=== PATIENT | male | born 1990 | race Caucasian/White ===

== ENCOUNTER 2019-12-01 17:31 | Inpatient (IN) | payer MEDICAID, OTHER ==
[~2019-12-01] VITALS: Ht 175.3 cm; Wt 72.6 kg
[2019-12-01 18:45] LABS: Basophils # (auto) 0 10 ^3/uL (0-0.2); Basophils % (auto) 0.7 % (0.0-2.0); Eosinophils # (auto) 0.1 10 ^3/uL (0-0.8); Eosinophils % (auto) 1.4 % (0.0-7.0); Hematocrit 45.7 % (41.0-53.0); Hemoglobin 15.1 g/dL (13.5-17.5); Lymphocytes # (auto) 1.8 10 ^3/uL (0.4-5.4); Lymphocytes % (auto) 32.5 % (10.0-50.0); Mean Corpuscular Hemoglobin 29.6 pg (28.0-32.0); Mean Corpuscular Hgb Conc. 33.1 g/dL (32.0-36.0); Mean Corpuscular Volume 89.3 fL (80.0-100.0); Monocytes # (auto) 0.5 10 ^3/uL (0-1.3); Monocytes % (auto) 8.8 % (0.0-12.0); Neutrophils # (auto) 3.1 10 ^3/uL (1.6-8.6); Neutrophils % (auto) 56.6 % (37.0-80.0); Nucleated Red Blood Cells % 0.3 %; Platelet Count (auto) 239 10^3/uL (140-450); Red Blood Cells 5.12 10^6/uL (4.5-5.90); Red Cell Distribution Width 12.4 % (11.8-14.3); White Blood Cell 5.5 10^3/uL (4.4-10.8)
[2019-12-01 19:03] LABS: Alanine Aminotransferase 42 U/L (16-61); Albumin 3.7 g/dL (3.4-5.0); Anion Gap 4 (5-15); Aspartate Aminotransferase 33 U/L (15-37); BUN/Creatinine Ratio 7.3; Blood Urea Nitrogen 7 mg/dL (7-18); Calcium 8.9 mg/dL (8.5-10.1); Carbon Dioxide 31 mmol/L (21-32); Chloride 105 mmol/L (98-107); GFR African American 121 mL/min; GFR Non-African American 100 mL/min; Glucose 89 mg/dL (74-106); Potassium 4.5 mmol/L (3.5-5.1); Sodium 140 mmol/L (136-145)
[2019-12-01 19:07] LABS: Alkaline Phosphatase 72 U/L (45-117); Bilirubin, Total 1.5 mg/dL (0.2-1.0); Total Protein 7.1 g/dL (6.4-8.2)
[2019-12-01] MEDS ORDERED: CLOPIDOGREL BISULFATE 75 MG TAB PO ONE (20:00)
[2019-12-01] MEDS ORDERED: MORPHINE SULFATE 4 MG/ML SYR/VIAL IV ONE (20:00)
[2019-12-01] MEDS ORDERED: ONDANSETRON HCL 4 MG/2 ML VIAL IV ONE (20:00)
[2019-12-01] MEDS ORDERED: NITROGLYCERIN 0.4 MG SL TAB SL ONE (20:00)
[2019-12-01] MEDS ORDERED: ASPirin 325 MG TAB PO ONE (20:00)
[2019-12-01] MEDS ORDERED: SODIUM CHLORIDE 0.9% 1,000 ML IV ONE (20:00)
[2019-12-01] MEDS ORDERED: NITROGLYCERIN 0.4 MG SL TAB SL PRN ×2 (21:00→23:00)
[2019-12-01] MEDS ORDERED: MORPHINE SULF INJ 2 MG/ML SYRINGE 1ML IV PRN (21:00)
[2019-12-01 22:50] VITALS: BP 147/83
[2019-12-01] MEDS ORDERED: MORPHINE SULFATE 4 MG/ML SYR/VIAL IV PRN (23:00)
[2019-12-01] MEDS ORDERED: LORazepam 0.5 MG TAB PO PRN (23:00)
[2019-12-01] MEDS ORDERED: hydrALAZINE HCL 20 MG/ML VL IV PRN (23:00)
[2019-12-01] MEDS ORDERED: ALUM & MAG HYDROX-SIMETH LIQ(MAALOX) 30 ML PO ONE (23:00)
[2019-12-01] MEDS ORDERED: ONDANSETRON HCL 4 MG/2 ML VIAL IV PRN (23:00)
[2019-12-01 23:20] VITALS: BP 147/83
[2019-12-01] MEDS: SODIUM CHLORIDE 0.9% 1,000 ML IV SCH (23:41)
--- NOTE | 2019-12-02 02:22 | NUR ---
2330. 12.01.19. PATIENT WS ADMITTED FROM ER. ARRIVED THE UNIT AT 2247. WAS NOTE AWAKE ALERT AND ORIENTED. DENIED PAIN AT THISTIME. HE WAS MADE COMFORTABLEAND ORIENTED TO THE UNIT. CALL BUTTON WAS PLACED WITHIN HIS REACH. 0122. 12/02/19. CALLED FOR SUBSTERNAL CHEST PAIN 01/02. WAS MEDICATED WITH SUBLINGUAL NITROGLYCERIN X 3 AT 5 MINUTES INTERVALS. 0130. PATIENT SHOWED IMPROVEMENT OF CHEST PAIN. REQUESTED FOR SOMETHING TO EAT AND DRINK. THESE WERE OFFERED. HE ATE HUNGRILY AND SOON FELL ASLEEP. 0230. PATIENT IS SLEEPING AT THIS TIME.
--- NOTE | 2019-12-02 03:34 | NUR ---
0325. 12/02/19. MORPHINE INJECTION GIVEN TO PATIENT IV FOR CHEST PAIN 01/02. PATIENT ASKED TO STAY ON HIS BED QUIETLY FOR ABOUT 10 MINUTES. HE IGNORED ADVISE AND WALKED AWAY TOWARDS [facility]. SECURITY WAS THERE CALLED AND BRIEFED. 0344. PATIENT IS STILL OUT OF THE FLOOR. DID NOT SIGN THE AMA PAPER.
--- NOTE | 2019-12-02 03:48 | NUR ---
0350. SECURITY BROUGHT BACK THE PATIENT AND HE SIGNED THE AMA PAPER AND WALKED OUT HURRIEDLY.
[2019-12-02 04:52] VITALS: BP 126/77
--- NOTE | 2019-12-02 06:57 | NUR ---
PATIENT HAS BEEN SLEEPING AFTER RETURNING FROM SMOKING.
[2019-12-02 07:10] LABS: Basophils # (auto) 0 10 ^3/uL (0-0.2); Basophils % (auto) 0.4 % (0.0-2.0); Eosinophils # (auto) 0.1 10 ^3/uL (0-0.8); Eosinophils % (auto) 3.9 % (0.0-7.0); Hematocrit 42.3 % (41.0-53.0); Hemoglobin 14.3 g/dL (13.5-17.5); Lymphocytes # (auto) 1.6 10 ^3/uL (0.4-5.4); Lymphocytes % (auto) 44.4 % (10.0-50.0); Mean Corpuscular Hemoglobin 30.3 pg (28.0-32.0); Mean Corpuscular Hgb Conc. 33.7 g/dL (32.0-36.0); Mean Corpuscular Volume 89.7 fL (80.0-100.0); Monocytes # (auto) 0.4 10 ^3/uL (0-1.3); Monocytes % (auto) 11.3 % (0.0-12.0); Neutrophils # (auto) 1.5 10 ^3/uL (1.6-8.6); Nucleated Red Blood Cells % 0.6 %; Platelet Count (auto) 205 10^3/uL (140-450); Red Blood Cells 4.71 10^6/uL (4.5-5.90); Red Cell Distribution Width 12.7 % (11.8-14.3); White Blood Cell 3.6 10^3/uL (4.4-10.8)
[2019-12-02 07:17] LABS: INR 1.19 (0.9-1.15); Partial Thromboplastin Time 31.1 sec (23.64-32.05)
[2019-12-02 07:35] LABS: Albumin 3.3 g/dL (3.4-5.0); Anion Gap 5 (5-15); Blood Urea Nitrogen 9 mg/dL (7-18); Carbon Dioxide 30 mmol/L (21-32); Chloride 106 mmol/L (98-107); Potassium 3.4 mmol/L (3.5-5.1); Sodium 141 mmol/L (136-145)
--- NOTE | 2019-12-02 07:35 | NUR ---
OPENING NOTE ASSUMED CARE OF PT. PT AAOX4. NO S/S OF SOB OR DISTRESS NOTED. BED SET TO LOWEST POSITION/LOCKED, BEDSIDE RAILS UP X2, CALL LIGHT WITHIN REACH. INSTRUCTED PATIENT TO CALL FOR ASSISTANCE. UPDATED ON POC. PT VERBALIZED UNDERSTANDING. WILL CONTINUE TO MONITOR Q1H AND PRN.
[2019-12-02 07:39] LABS: Alanine Aminotransferase 36 U/L (16-61); Alkaline Phosphatase 63 U/L (45-117); Aspartate Aminotransferase 30 U/L (15-37); BUN/Creatinine Ratio 10.1; Bilirubin, Total 1.5 mg/dL (0.2-1.0); CRP High Sensitivity 0.04 mg/dL (< 0.3); Calcium 8.2 mg/dL (8.5-10.1); Cholesterol 111 mg/dL (< 200); Creatine Kinase IFCC 115 U/L (39-308); GFR African American 132 mL/min; GFR Non-African American 109 mL/min; Glucose 94 mg/dL (74-106); HDL Cholesterol 58 mg/dL (40-59); LDL Cholesterol 47 mg/dL (< 100); Magnesium 2.3 mg/dL (1.6-2.6); Phosphorus 3.2 mg/dL (2.5-4.90); Total Protein 6.1 g/dL (6.4-8.2); Triglycerides 41 mg/dL (< 150)
--- NOTE | 2019-12-02 08:20 | NUR ---
IV FLUIDS PATIENT IS REFUSING IV FLUIDS. INFORMED PATIENT MD ORDERED FLUIDS AND THE BENEFITS OF IV FLUIDS. PATIENT VERBALIZED UNDERSTANDING. WILL CONTINUE TO MONITOR.
[2019-12-02 09:00] VITALS: BP 105/72
[2019-12-02] MEDS ORDERED: ASPirin 81 mg TAB PO SCH (10:00)
[2019-12-02] MEDS ORDERED: ENOXAPARIN SOD 80 MG/0.8ML SYRINGE SC SCH (10:00)
[2019-12-02] MEDS ORDERED: ENOXAPARIN SOD 40 MG/0.4 ML SYRINGE SC SCH (10:00)
[2019-12-02] MEDS ORDERED: LISINOPRIL 10 MG TAB PO SCH (10:00)
[2019-12-02] MEDS ORDERED: POTASSIUM CHL 20 Meq TABLET PO ONE (10:00)
[2019-12-02] MEDS ORDERED: DOCUSATE SOD 100 MG CAP PO SCH (10:00)
[2019-12-02] MEDS: SODIUM CHLORIDE 0.9% 1,000 ML IV SCH (12:06)
[2019-12-02 13:00] VITALS: BP 112/40
--- NOTE | 2019-12-02 16:01 | NUR ---
TELE MONITOR TELE BOX #[id number] SENT BACK TO ICU. [employer] MANAGER JIMENEZ IS AWARE.
[2019-12-02 16:23] VITALS: BP 112/90
--- NOTE | 2019-12-02 17:40 | NUR ---
Discharge Discharge instructions given as ordered. Encourage to follow up with PMD as instructed. All questions and concerns addressed. Patient verbalized understanding. IV removed with catheter intact, pressure dressing applied. Telemetry unit returned to ICU. Patient taken to vehicle via wheelchair with all personal belongings, accompanied by staff and family member. No distress noted at time of departure.
--- NOTE | 2019-12-02 18:42 | NUR ---
STRIP CLEANER SPOKE TO PATIENT MOM INFORMED HER PATIENT LEFT CHARGE AT BEDSIDE. PER MOM SHE WILL INFORM HIM WHEN SHE TALKS TO HIM. WILL GIVE TO CHARGE NURSE. Addendum: 12/02/19 at 1844 by Laura Calderon RN JOSE MANUEL WILSON
[2019-12-02] MEDS ORDERED: ATORVASTATIN 20 MG TAB PO SCH (22:00)
--- NOTE | 2019-12-04 09:19 | NUR ---
D/C Planning [employer] Weekend. DID NOT RECEIVED A PAGE Regarding social service consult for [facility].
[2019-12-04 14:41] LABS: Hepatitis A Ab IgM Negative; Hepatitis B Core IgM Negative; Hepatitis B Surface Antigen Negative (Negative)
[2019-12-05 17:43] LABS: Hepatitis C Antibody Positive (Negative)
== END 2019-12-02 15:42 | disposition home or self-care (01) | DRG 203 ==
LOC: ER 17:31 → TELE 17:32 → TELE-WESTW 22:48
PROVIDERS: ADMIT Hospitalist; ATTEND Hospitalist
DX: R07.89 Other chest pain (principal); B19.20 Unspecified viral hepatitis C without hepatic coma; F15.10 Other stimulant abuse, uncomplicated; E78.5 Hyperlipidemia, unspecified; E87.6 Hypokalemia; F12.90 Cannabis use, unspecified, uncomplicated; F17.210 Nicotine dependence, cigarettes, uncomplicated; Z59.0 Homelessness; Z82.49 Family history of ischemic heart disease and other diseases of the circulatory system
CPT/HCPCS: 36415; 71046; 80053; 80061; 80074; 82550; 83036; 83735; 83880; 84100; 84443; 84484; 85025; 85610; 85652; 85730; 86141; 87040; 93005; 93306; 96361; 96374; 96375; G0378; J2405

== ENCOUNTER → 2019-12-03 | Emergency (ER) | payer SELFPAY ==
[~2019-12-03] VITALS: Ht 175.3 cm; Wt 74.8 kg
[2019-12-03 03:29] LABS: Basophils # (auto) 0 10 ^3/uL (0-0.2); Basophils % (auto) 0.6 % (0.0-2.0); Eosinophils # (auto) 0.1 10 ^3/uL (0-0.8); Eosinophils % (auto) 1.4 % (0.0-7.0); Hematocrit 47.4 % (41.0-53.0); Hemoglobin 15.9 g/dL (13.5-17.5); Lymphocytes # (auto) 1.5 10 ^3/uL (0.4-5.4); Lymphocytes % (auto) 30.3 % (10.0-50.0); Mean Corpuscular Hemoglobin 30.2 pg (28.0-32.0); Mean Corpuscular Hgb Conc. 33.6 g/dL (32.0-36.0); Mean Corpuscular Volume 89.9 fL (80.0-100.0); Monocytes # (auto) 0.4 10 ^3/uL (0-1.3); Monocytes % (auto) 8.3 % (0.0-12.0); Neutrophils # (auto) 2.9 10 ^3/uL (1.6-8.6); Neutrophils % (auto) 59.4 % (37.0-80.0); Nucleated Red Blood Cells % 0.2 %; Platelet Count (auto) 242 10^3/uL (140-450); Red Blood Cells 5.28 10^6/uL (4.5-5.90); Red Cell Distribution Width 12.8 % (11.8-14.3); White Blood Cell 4.9 10^3/uL (4.4-10.8)
[2019-12-03 03:47] LABS: Alanine Aminotransferase 42 U/L (16-61); Albumin 3.9 g/dL (3.4-5.0); Anion Gap 3 (5-15); Aspartate Aminotransferase 32 U/L (15-37); BUN/Creatinine Ratio 13.9; Blood Urea Nitrogen 11 mg/dL (7-18); Calcium 8.7 mg/dL (8.5-10.1); Carbon Dioxide 30 mmol/L (21-32); Chloride 105 mmol/L (98-107); GFR African American 151 mL/min; GFR Non-African American 125 mL/min; Glucose 89 mg/dL (74-106); Potassium 4.1 mmol/L (3.5-5.1); Sodium 138 mmol/L (136-145)
[2019-12-03 03:48] LABS: Alcohol, Urine < 3.0 mg/dL (0-5); Amphetamine Screen, Urine POSITIVE (NEGATIVE); Barbiturate Scree,Urine NEGATIVE (NEGATIVE); Benzodiazephine Screen, Urine NEGATIVE (NEGATIVE); Cannabinoid Screen, Urine POSITIVE (NEGATIVE); Cocaine Screen, Urine NEGATIVE (NEGATIVE); Opiate Scree,Urine NEGATIVE (NEGATIVE); Phencyclidine Screen, Urine NEGATIVE (NEGATIVE)
[2019-12-03 03:51] LABS: Alkaline Phosphatase 79 U/L (45-117); Bilirubin, Total 0.9 mg/dL (0.2-1.0); Total Protein 7.6 g/dL (6.4-8.2)
[2019-12-03 04:32] VITALS: BP 125/75
== END | disposition home or self-care (01) ==
LOC: ER 02:02
DX: R07.89 Other chest pain (principal); K29.00 Acute gastritis without bleeding; F12.10 Cannabis abuse, uncomplicated; F15.10 Other stimulant abuse, uncomplicated; Z59.0 Homelessness
CPT/HCPCS: 36415; 71046; 80053; 80307; 84484; 85025; 93005

== ENCOUNTER 2021-11-05 13:05 | Emergency (ER) | payer MEDICAID, OTHER ==
[~2021-11-05] VITALS: Ht 175.3 cm; Wt 72.6 kg
[2021-11-05 13:10] VITALS: BP 131/95
[2021-11-05 14:49] LABS: Basophils # (auto) 0 10 ^3/uL (0-0.2); Basophils % (auto) 0.5 % (0.0-2.0); Eosinophils # (auto) 0.1 10 ^3/uL (0-0.8); Eosinophils % (auto) 0.8 % (0.0-7.0); Hematocrit 44.5 % (41.0-53.0); Hemoglobin 15.2 g/dL (13.5-17.5); Lymphocytes # (auto) 2.3 10 ^3/uL (0.4-5.4); Lymphocytes % (auto) 36.2 % (10.0-50.0); Mean Corpuscular Hemoglobin 29.8 pg (28.0-32.0); Mean Corpuscular Hgb Conc. 34.1 g/dL (32.0-36.0); Mean Corpuscular Volume 87.3 fL (80.0-100.0); Monocytes # (auto) 0.7 10 ^3/uL (0-1.3); Monocytes % (auto) 10.3 % (0.0-12.0); Neutrophils # (auto) 3.3 10 ^3/uL (1.6-8.6); Neutrophils % (auto) 52.2 % (37.0-80.0); Nucleated Red Blood Cells % 0.1 %; Red Blood Cells 5.09 10^6/uL (4.5-5.90); White Blood Cell 6.3 10^3/uL (4.4-10.8)
[2021-11-05 15:06] LABS: Albumin 4.2 g/dL (3.4-5.0); Calcium 9.3 mg/dL (8.5-10.1); Potassium 3.7 mmol/L (3.5-5.1)
[2021-11-05 15:10] LABS: BUN/Creatinine Ratio 11.1; Total Protein 7.6 g/dL (6.4-8.2)
== END 2021-11-05 17:58 | disposition left against medical advice (07) ==
LOC: ER 13:05
DX: R05.9 Cough, unspecified (principal); R06.02 Shortness of breath; Z53.21 Procedure and treatment not carried out due to patient leaving prior to being seen by health care provider; Z20.822 Contact with and (suspected) exposure to COVID-19
CPT/HCPCS: 36415; 71046; 80053; 84484; 85025; 93005

== ENCOUNTER 2021-11-20 16:08 | Emergency (ER) | payer OTHER ==
[~2021-11-20] VITALS: Ht 175.3 cm; Wt 68.0 kg
[2021-11-20] MEDS ORDERED: ASPirin 81 mg TAB PO ONE (17:30)
[2021-11-20 18:09] LABS: Basophils # (auto) 0.1 10 ^3/uL (0-0.2); Basophils % (auto) 1.2 % (0.0-2.0); Eosinophils # (auto) 0.1 10 ^3/uL (0-0.8); Eosinophils % (auto) 1.5 % (0.0-7.0); Hematocrit 42.5 % (41.0-53.0); Hemoglobin 14.8 g/dL (13.5-17.5); Lymphocytes # (auto) 1.5 10 ^3/uL (0.4-5.4); Lymphocytes % (auto) 24.3 % (10.0-50.0); Mean Corpuscular Hemoglobin 30.3 pg (28.0-32.0); Mean Corpuscular Hgb Conc. 34.8 g/dL (32.0-36.0); Monocytes # (auto) 0.5 10 ^3/uL (0-1.3); Monocytes % (auto) 8.9 % (0.0-12.0); Neutrophils # (auto) 3.9 10 ^3/uL (1.6-8.6); Neutrophils % (auto) 64.1 % (37.0-80.0); Nucleated Red Blood Cells % 0.1 %; Red Blood Cells 4.89 10^6/uL (4.5-5.90); Red Cell Distribution Width 13.1 % (11.8-14.3); White Blood Cell 6.1 10^3/uL (4.4-10.8)
[2021-11-20 18:26] LABS: Albumin 3.8 g/dL (3.4-5.0); BUN/Creatinine Ratio 12.3; Calcium 9.1 mg/dL (8.5-10.1)
[2021-11-20 18:28] LABS: Bilirubin, Total 1.2 mg/dL (0.2-1.0); Total Protein 7.2 g/dL (6.4-8.2)
[2021-11-20 19:30] VITALS: BP 139/85
== END 2021-11-20 18:39 | disposition home or self-care (01) ==
LOC: ER 16:08
DX: R07.89 Other chest pain (principal); F15.10 Other stimulant abuse, uncomplicated; I10 Essential (primary) hypertension; F17.210 Nicotine dependence, cigarettes, uncomplicated; F12.10 Cannabis abuse, uncomplicated; Z59.00 Homelessness unspecified
CPT/HCPCS: 36415; 71046; 80053; 84484; 85025; 93005

== ENCOUNTER 2021-11-27 00:46 | Emergency (ER) | payer OTHER ==
[~2021-11-27] VITALS: Ht 175.3 cm; Wt 81.6 kg
[2021-11-27 01:42] LABS: Basophils # (auto) 0.1 10 ^3/uL (0-0.2); Basophils % (auto) 1.2 % (0.0-2.0); Eosinophils # (auto) 0.3 10 ^3/uL (0-0.8); Hematocrit 39.3 % (41.0-53.0); Hemoglobin 13.6 g/dL (13.5-17.5); Lymphocytes # (auto) 1.6 10 ^3/uL (0.4-5.4); Mean Corpuscular Hemoglobin 30.1 pg (28.0-32.0); Mean Corpuscular Hgb Conc. 34.5 g/dL (32.0-36.0); Mean Corpuscular Volume 87.4 fL (80.0-100.0); Monocytes # (auto) 0.6 10 ^3/uL (0-1.3); Monocytes % (auto) 8.9 % (0.0-12.0); Neutrophils # (auto) 3.9 10 ^3/uL (1.6-8.6); Neutrophils % (auto) 60.9 % (37.0-80.0); Nucleated Red Blood Cells % 0.1 %; Red Cell Distribution Width 13.1 % (11.8-14.3); White Blood Cell 6.4 10^3/uL (4.4-10.8)
[2021-11-27] MEDS ORDERED: NALOXONE HCL 1MG/ML 2ML SYRINGE IV ONE ×3 (01:45→04:15)
[2021-11-27 01:58] LABS: Alanine Aminotransferase 40 U/L (16-61); Albumin 3.3 g/dL (3.4-5.0); Anion Gap 5 (5-15); Aspartate Aminotransferase 35 U/L (15-37); BUN/Creatinine Ratio 17.6; Blood Alcohol < 3.0 mg/dL (0-5); Blood Urea Nitrogen 12 mg/dL (7-18); Calcium 7.9 mg/dL (8.5-10.1); Carbon Dioxide 30 mmol/L (21-32); Chloride 102 mmol/L (98-107); GFR African American 177 mL/min; GFR Non-African American 147 mL/min; Glucose 87 mg/dL (74-106); Sodium 137 mmol/L (136-145)
[2021-11-27 02:01] LABS: Alkaline Phosphatase 80 U/L (45-117); Bilirubin, Total 0.7 mg/dL (0.2-1.0); Total Protein 6.1 g/dL (6.4-8.2)
[2021-11-27 02:09] LABS: Salicylate < 1.7 mg/dL (2.8-20.0)
[2021-11-27 02:16] LABS: Acetaminophen < 2.0 ug/mL (10-30)
[2021-11-27] MEDS ORDERED: SODIUM CHLORIDE 0.9% 1,000 ML IV ONE (03:00)
[2021-11-27 04:23] VITALS: BP 112/69
[2021-11-27 04:41] LABS: Urine WBC None Seen /hpf (0 - 3)
[2021-11-27 04:49] LABS: Urine Bacteria NONE SEEN /hpf (None Seen); Urine Blood Negative /uL (Negative); Urine Specific Gravity 1.003 (1.001-1.035)
[2021-11-27 05:00] LABS: Alcohol, Urine < 3.0 mg/dL (0-10); Amphetamine Screen, Urine POSITIVE (NEGATIVE); Barbiturate Scree,Urine NEGATIVE (NEGATIVE); Benzodiazephine Screen, Urine NEGATIVE (NEGATIVE); Cannabinoid Screen, Urine POSITIVE (NEGATIVE); Cocaine Screen, Urine NEGATIVE (NEGATIVE); Opiate Scree,Urine NEGATIVE (NEGATIVE); Phencyclidine Screen, Urine NEGATIVE (NEGATIVE)
== END 2021-11-27 05:28 | disposition home or self-care (01) ==
LOC: ER 00:46 → EDBD 00:46 → ER 05:28
DX: T40.601A Poisoning by unspecified narcotics, accidental (unintentional), initial encounter (principal); F15.10 Other stimulant abuse, uncomplicated; F12.10 Cannabis abuse, uncomplicated; I10 Essential (primary) hypertension; F17.210 Nicotine dependence, cigarettes, uncomplicated; F11.10 Opioid abuse, uncomplicated; Z59.00 Homelessness unspecified; Y92.89 Other specified places as the place of occurrence of the external cause
CPT/HCPCS: 36415; 71045; 80053; 80307; 80320; 80329; 81001; 83735; 85025; 93005; 96361; 96374; 96376; 99285; J2310; J7030